=== PATIENT | male | born 2000 | race Hispanic/Latino ===

== ENCOUNTER 2024-05-30 15:50 | Emergency (ER) | payer OTHER ==
[2024-05-30] MEDS ORDERED: Acetaminophen 500 MG TAB ONE (16:26)
[2024-05-30] MEDS ORDERED: Ketorolac Tromethamine 30 MG (1 mL) VIAL ONE (16:26)
[2024-05-30 17:05] LABS: Influenza A by NAA Not Detected (NotDetected); Influenza B by NAA Not Detected (NotDetected); SARS-CoV-2 NAA Rapid Test DETECTED (NotDetected)
== END 2024-05-30 17:43 | disposition home or self-care (01) ==
LOC: ERS 15:50
DX: U07.1 COVID-19 (principal); F17.210 Nicotine dependence, cigarettes, uncomplicated
CPT/HCPCS: 96372; 99283; J1885